=== PATIENT | female | born 1985 | race Two or more races ===

== ENCOUNTER 2019-07-05 05:41 | Day surgery (SDC) | payer BC ==
[~2019-07-05] VITALS: Ht 167.6 cm; Wt 52.2 kg
[2019-07-05] VITALS (10 sets, daily range): BP systolic 91–102; BP diastolic 56–73
[~2019-07-05 05:41] MED LIST: MULTIVITAMINS1 EAC2 ORAL
[2019-07-05] MEDS ORDERED: fentaNYL 100 mcg/2 mL IV ONE (06:36)
[2019-07-05] MEDS ORDERED: Midazolam 2mg/2ml Inj ONE (06:36)
[2019-07-05] MEDS ORDERED: LR 1000ml 1,000 ML IVLG SCH ×2 (07:00→07:10)
[2019-07-05] MEDS ORDERED: Propofol 200mg/20ml IV ONE (07:00)
--- NOTE | 2019-07-05 07:10 | Anethesia Preoperative Eval ---
Anesthesia Pre-op PMH/ROS General Date of Evaluation: Jul 05, 2019 Time of Evaluation: 07:08 Anesthesiologist: Misty ASA Score: ASA 2 Mallampati Score Class I : Soft palate, uvula, fauces, pillars visible Class II: Soft palate, uvula, fauces visible Class III: Soft palate, base of uvula visible Class IV: Only hard plate visible Mallampati Classification: Class II Surgeon: Manas Diagnosis: GI bleed Surgical Procedure: Colonoscopy Anesthesia History: none Family History: no anesthesia problems Allergies: Coded Allergies: No Known Allergies (Unverified , 07/04/19) Medications: see eMAR Patient NPO?: Yes Past Medical History Cardiovascular: Denies: HTN, CAD, NC, valve dz, arrhythmia, other Pulmonary: Denies: asthma, COPD, FLAVIO, other Gastrointestinal/Genitourinary: Reports: GERD, other - h/o rectal bleed; Denies: CRI, ESRD Neurologic/Psychiatric: Denies: dementia, CVA, depression/anxiety, TIA, other Endocrine: Denies: DM, hypothyroidism, steroids, other HEENT: Denies: cataract (L), cataract (R), glaucoma, KLETSEL DEHE WINTUN (L), KLETSEL DEHE WINTUN (R), other Hematology/Immune: Denies: anemia, DVT, bleeding disorder, other Musculoskeletal/Integumentary: Denies: OA, RA, DJD, DDD, edema, other PMH Narrative: as above PSxH Narrative: T&A Anesthesia Pre-op Phys. Exam Physician Exam Last Vital Signs Date Time Temp Pulse Resp B/P (MAP) Pulse Ox O2 Delivery O2 Flow Rate FiO2 07/05/19 06:14 97.3 75 18 99/73 99 Room Air Constitutional: NAD Neurologic: CN 2-12 intact Cardiovascular: RRR, no M/R/G Respiratory: CTA Gastrointestinal: S/NT/ND Airway Exam Mallampati Score: Class II MO: full Neck: flexible ROM: full Teeth: intact Dentures: no upper, no lower Anesthesia Pre-op A/P Labs Urine Test Test 07/05/19 06:00 Urine HCG, Qualitative Negative (NEGATIVE) Risk Assessment & Plan Assessment: ASA 2 Plan: MAC Status Change Before Surgery: No Jarvis Jay MD Jul 05, 2019 07:10
[2019-07-05] MEDS ORDERED: fentaNYL 100 mcg/2 mL IV PRN (07:15)
--- NOTE | 2019-07-05 07:21 | Short Stay Surgery H&P ---
History of Present Illness History of Present Illness Chief Complaint See H&P attached HPI Maryana Burnett is a 33 year old female who was admitted on for Hematochezia Patient History Allergies: Coded Allergies: No Known Allergies (Unverified , 07/04/19) Medication History Scheduled Multivitamins* (Multivitamins*), 1 TAB ORAL DAILY, (Reported) Physical Exam Vital Signs Last Vital Signs Date Time Temp Pulse Resp B/P (MAP) Pulse Ox O2 Delivery O2 Flow Rate FiO2 07/05/19 06:14 97.3 75 18 99/73 99 Room Air Labs Laboratory Tests Test 07/05/19 06:00 Urine HCG, Qualitative Negative (NEGATIVE) Plan Attestation Are the patient's medical conditions optimized for surgery? Deja Hanna MD Jul 05, 2019 07:21
--- NOTE | 2019-07-05 07:21 | Pre-Procedure Note/Attestation ---
Pre-Procedure Note/Attestation Complete Prior to Procedure Planned Procedure: not applicable Procedure Narrative: colonoscopy Indications for Procedure Pre-Operative Diagnosis: hematochezia, diarrhea Attestation I attest that I discussed the nature of the procedure; its benefits; risks and complications; and alternatives (and the risks and benefits of such alternatives ), prior to the procedure, with the patient (or the patient's legal sales representative education courses). I attest that, if there was a reasonable possibility of needing a blood transfusion, the patient (or the patient's legal sales representative education courses) was given the [facility] standardized written summary, pursuant to the Rakesh [place] Blood Safety Act ([place] Health and Safety Code # 1645, as amended). I attest that I re-evaluated the patient just prior to the surgery and that there has been no change in the patient's H&P, except as documented below: Deja Hanna MD Jul 05, 2019 07:21
--- NOTE | 2019-07-05 08:07 | Immediate Post-Op Evaluation ---
Immediate Post-Op Evalulation Immediate Post-Op Evalulation Procedure: Colonoscopy Date of Evaluation: Jul 05, 2019 Time of Evaluation: 08:06 IV Fluids: 1000 Blood Products: none Estimated Blood Loss: none Urinary Output: none Blood Pressure Systolic: 94 Blood Pressure Diastolic: 56 Pulse Rate: 72 Respiratory Rate: 20 O2 Sat by Pulse Oximetry: 99 Temperature (Fahrenheit): 97.7 Pain Score (1-10): 1 Nausea: No Vomiting: No Complications none Patient Status: awake, patent, none Hydration Status: adequate Jarvis Jay MD Jul 05, 2019 08:07
--- NOTE | 2019-07-05 10:11 | 48 Hour Post Anesthesia Eval ---
Post Anesthesia Evaluation Procedure: Colonoscopy Date of Evaluation: Jul 05, 2019 Time of Evaluation: 10:09 Blood Pressure Systolic: 102 0: 56 Pulse Rate: 68 Respiratory Rate: 20 Temperature (Fahrenheit): 97.8 O2 Sat by Pulse Oximetry: 98 Airway: patent Nausea: No Vomiting: No Hydration Status: adequate Cardiopulmonary Status: stable Mental Status/LOC: patient returned to baseline Follow-up Care/Observations: n/a Post-Anesthesia Complications: none Follow-up care needed: ready to discharge Jarvis Jay MD Jul 05, 2019 10:11
--- NOTE | 2019-07-06 14:18 | Endoscopy Procedure Note ---
Endoscopy Procedure Note General Indication for Procedure: BRB, Diarrhea Procedures Performed: colonoscopy Operative Findings/Diagnosis: dim TV polyp, min rhoid, bx Specimen: yes Pt Tolerated Procedure Well: Yes Estimated Blood Loss: none Anesthesia Anesthesiologist: see notes Anesthesia: MAC Medications Medication Given: see anesthesia record Inserted Devices Implant(s) used?: No GI Core Measures 50 yrs or older w/o bx or poly: Not Applicable 10yrs. F/U recommended: Not Applicable If not recommended, why?: Deja Hanna MD Jul 06, 2019 14:18
--- NOTE | 2019-07-06 14:19 | Brief Operative Note ---
Immediate Post Operative Note Operative Note Chief Complaint: brb, diarr Pre-op Diagnosis: hematochezia, diarrhea Procedure: colon bx Post-op Diagnosis: dim TV polyp Surgeon: nicol Anesthesia: MAC Specimen: yes Complications: yes Fluids: recorded Implant(s) used?: No Deja Hanna MD Jul 06, 2019 14:19
--- NOTE | 2019-07-06 14:30 | Operative Note - Dictated ---
DATE OF OPERATION: 07/05/2019 GASTROENTEROLOGY PROCEDURE REPORT PROCEDURE: Colonoscopy with biopsy. SURGEON: Deja Hanna M.D. ANESTHESIA: Jarvis Jay M.D. PRE-ENDOSCOPIC DIAGNOSES: Chronic diarrhea and intermittent hematochezia. POST-ENDOSCOPIC DIAGNOSES: 1. Diminutive polyp in the transverse colon, status post biopsy removal. 2. Normal terminal ileum as well as colonic mucosa with no evidence of inflammation or ulceration, status post random biopsies of terminal ileum, right colon, left colon, and rectosigmoid colon. DESCRIPTION OF PROCEDURE: The procedure, its risks, indications, and alternatives were explained and informed consent was obtained. The patient was then sedated in the left lateral decubitus position. A diagnostic colonoscope was introduced into the rectum and advanced to 10 cm into the terminal ileum. The colonoscope was then gradually withdrawn and mucosa examined carefully. Examination was terminated with the retroflexed view of the rectum. The terminal ileal mucosa was normal and the colonic mucosa did not show any evidence of inflammation, ulceration, or loss of vascularity. Random biopsies of the terminal ileum and in various locations of the colon were sent to pathology for review. There was a diminutive polyp in the transverse colon measuring approximately 3 to 4 mm, which was removed with a biopsy forceps. The retroflexed view of the rectum as well as anal views showed only mild hemorrhoidal vessels. The colonoscope was removed. The patient was sent to recovery in good condition. COMPLICATIONS: None. ASSESSMENT: There was no visual evidence of inflammatory bowel disease in this examination. Biopsies will be reviewed to rule out any evidence of microscopic disease. The patient's intermittent hematochezia is likely due to mild hemorrhoidal bleeding and can be treated conservatively. RECOMMENDATIONS: 1. Resume oral diet. 2. Follow up biopsy results. 3. Outpatient followup. Thank you for asking me to participate in the care of this patient. Deja Hanna M.D. DR: MAL JOB#: [id number] CC: Sweetie Howard M.D. ; FAX#: [phone]
== END 2019-07-05 09:10 | disposition home or self-care (01) ==
LOC: GAS 05:41
DX: R19.7 Diarrhea, unspecified (principal); K92.1 Melena; K63.5 Polyp of colon; K21.9 Gastro-esophageal reflux disease without esophagitis
CPT/HCPCS: 45380; 81025; J2250; J2405; J2704; J3010; 94003; 94150